=== PATIENT | female | born 1950 | race Caucasian/White ===

== ENCOUNTER 2016-06-16 11:24 | Day surgery (SDC) | payer MEDICARE ==
[~2016-06-16] VITALS: Ht 170.2 cm; Wt 86.0 kg
[~2016-06-16 11:24] MED LIST: BUPR300T52 PO; DICY20TA33 PO; IBUP200C PO; LORA1TAB PO; OMEP20CA11 PO; SERT100T9 PO; [UNRECOGNIZED DRUG - OTHER] PO
[2016-06-16] MEDS ORDERED: fentaNYL-PF 50 mCg/mL 2 mL Inj ONE (11:25)
[2016-06-16] MEDS ORDERED: Propofol 10 mg/mL 20 mL Inj ONE (11:25)
[2016-06-16 12:01] VITALS: BP 112/70; PULSE 86; RESP 18; O2SAT 99
[2016-06-16] MEDS: Lactated Ringer's 1,000 ML IV ONE ×3 (12:23→12:49)
--- NOTE | 2016-06-16 12:31 | PCM.HPANE ---
Patient Data Surgeon Admitting Provider: Attending Provider:Joshua Hong MD Primary Care Physician:Shaun Garner MD Other Provider:[facility] Reason for Visit Diarrhea Ht/WT & BMI Body Mass Index Allergies Coded Allergies: citalopram (Verified Adverse Reaction, Severe, very forgetful, confusion, 05/15/16) clonazepam (Verified Adverse Reaction, Severe, significant memory loss, ) duloxetine (Verified Adverse Reaction, Severe, "head zaps", 05/15/16) Past Anesthesia History Anesthesia History: Denies:: Anesthesia Reactions, Malignant Hyperthermia Diabetes History Hx Diabetes?: No MRSA MRSA: No Medications Reported Medications Omeprazole 20 Mg Capsule.dr20 Mg PO DAILY Ref 0 05/11/16 Ibuprofen 200 Mg [id number] Mg PO QID PRN For Pain Ref 0 05/11/16 [A Thru Z Adv Formula] No Conflict Check1 Tab PO DAILY 05/11/16 Sertraline HCl (Sertraline)100 Mg Igldyf454 Mg PO DAILY 30 Days Ref 0 12/04/14 Lorazepam 1 Mg Tablet0.5-1 Mg PO BID PRN For Anxiety Ref 0 12/04/14 Bupropion ER 300 Mg Tab.er.06z904 Mg PO DAILY #30 TABLET Ref 0 12/04/14 Discontinued Reported Medications Dicyclomine (Bentyl)20 Mg Gutukq54 Mg PO QID PRN PRN 05/11/16 History History of ENT Problems?: Yes HEENT History: Positive for:: Cataracts Hx of Heart Problems?: Yes Cardiovascular History: Denies:: Congestive Heart Failure Heart Murmur Hypertension Hx of Respiratory Problem?: Yes Respiratory History: Denies:: Tuberculosis Use of C-PAP Machine Hx Neurologic Problems?: No Hx of GI Problems?: Yes Gastrointestinal History: Positive for:: Gastroesphageal Reflux (very rare) Hx of Problems?: No Female Hx: Denies:: Currently Endometriosis Pelvic Inflammatory Problems with Breasts? Skin History: Denies:: History Skin Disorders? Pressure Ulcers Hx Musculoskeletal Problems?: Yes Musculoskeletal History: Positive for:: Musculoskeletal Trauma (S/P ORIF RT PATELLA RT KNEE PAINFUL HDWRE (AFTER FALL)=CURRENT PROBLEM) Hx of Psycho/Social Problems?: Yes Psycho Social History: Positive for:: Anxiety Hx Depression Denies:: Suicide Attempt Hx Surgeries?: Yes (vein surgery 1984,ORIF RT PATELLA) Hx Any Other Health Problems?: Yes Other History: Positive for:: Hospitalization (blood transfusion for vein surgery) Denies:: Cancer Thyroid Disease History Blood Transfusions: Positive for:: Blood Transfusions Denies:: Blood Transfuse Reaction Hx Diabetes: No Hx Alcohol Use: NoHx Substance Use: Yes (marijuana daily) Smoking Status: Never Smoker Have You Smoked inLast 12 mo: No Stop/Bang Risk Assessment Category Category 1A: Patient has history of documented sleep apnea, and HAS NOT received any narcotic, sedative or anesthesia administration during this stay. Category 1B: Patient has history of documented sleep apnea, and HAS received any narcotic , sedative or anesthesia administration during this stay Category 2: Patient has SUSPECTED Obstructive Sleep Apnea, and HAS received any narcotic , sedative or anesthesia administration during this stay. Category 3: Patient has SUSPECTED Obstructive Sleep Apnea and HAS NOT received narcotic, sedative or anesthesia administration during this stay. Category 4: Outpatient in Procedural Areas with known sleep apnea or who screen positive for High Risk via the STOP/BANG questionnaire. Exam Exam General Appearance: Alert, Oriented X3, Cooperative, No Acute Distress HEENT/AIRWAY: MP 2 Lungs: Clear to Auscultation Heart: Exam Unremarkable Plan Impression Patient chart reviewed, patient interviewed and anesthestic plan with risks, benefits, and alternatives discussed, and informed consent obtained. NPO Status: 9PM 05/14 ASA Physical Status: ASA2 Mod Systemic Disease Anesthetic Plan: MAC Bene/Risks/Altern/Consents: Yes HP Complete Prior to Induction: Yes Hua Dorsey MD Jun 16, 2016 07:34
[2016-06-16 12:51] VITALS: BP 99/63; PULSE 63; RESP 14; O2SAT 99
[2016-06-16 12:55] VITALS: BP 109/59; PULSE 87; RESP 16; O2SAT 96
--- NOTE | 2016-06-16 12:55 | PCM.ANEP2 ---
Post Anesthesia Evaluation ASA/CMS Post Anesthesia VS in Patient's Normal Range?: Yes Resp Stable; Airway Patent?: Yes CV Function & Hydration Stable: Yes Mental Status Recovered?: Yes Pain control Satisfactory?: Yes N/V Control Satisfactory?: Yes Hua Dorsey MD Jun 16, 2016 12:55
[2016-06-16 13:11] VITALS: BP 118/65; PULSE 84; RESP 16; O2SAT 98
--- NOTE | 2016-06-16 13:54 | ENDO ---
[address] [address] ENDOSCOPY PROCEDURE PATIENT: RALPH NICHOLS : 1950 MR#: [id number] ADMIT: 06/16/2016 JOB ID: [id number] DATE: 06/16/2016 TYPE OF OPERATION: Colonoscopy with biopsy. PREOPERATIVE DIAGNOSIS(ES): Diarrhea. POSTOPERATIVE DIAGNOSIS(ES): Small internal hemorrhoids. ANESTHESIA: Monitored anesthesia care. COMPLICATION: None. BLOOD LOSS: Minimal. DESCRIPTION OF PROCEDURE: After risks and benefits were explained to the patient, informed consent was obtained. After anesthesia administered, colonoscope was then inserted per rectum to terminal ileum, mucosa carefully examined. The prep of the patient was excellent. After the procedure was done, the scope withdrawn and procedure terminated. FINDINGS: Upon inspection of the anus, no masses, hemorrhoids, ulcers, or fissures that were seen. Throughout the entire examination, there were no polyps, masses or lesions. Biopsies taken from terminal ileum and random colon to rule out microscopic colitis and inflammatory bowel disease. Retroflexion showed small internal hemorrhoids. IMPRESSION: Small internal hemorrhoids. RECOMMENDATIONS: 1. Await pathology results. 2. Followup in GI clinic as needed.
--- NOTE | 2016-06-19 12:22 | PATH ---
SURGICAL PATHOLOGY Attending Physician:Joshua Hong MD CASE STATUS: Signed Out PATIENT NAME: RALPH NICHOLS PID: [id number] : 1950 DATE COLLECTED:06/16/2016 20:00 SPECIMEN: 1: Ileum, Biopsy 2: Colon, Biopsy CLINICAL HISTORY: DIARRHEA 1). TERMINAL ILEUM BIOPSY 2). RANDOM COLON BIOPSY FINAL DIAGNOSIS: 1.TERMINAL ILEUM BIOPSY: FRAGMENTS OF NORMAL-APPEARING TERMINAL ILEUM MUCOSA. Negative for granulomas. Negative for significant inflammation, dysplasia and malignancy. 2.RANDOM COLON BIOPSIES: FRAGMENTS OF NORMAL-APPEARING COLON MUCOSA. Negative for significant architectural distortion. Negative for significant inflammation, dysplasia and malignancy. ICD10 code R19.7 GROSS DESCRIPTION: The specimen is received in two formalin filled containers labeled with the patient's name. 1). The specimen is sublabeled "terminal ileum" and consists of a 0.3 x 0.3 x 0.2 CM portion of tissue which is entirely submitted in cassette 1A. 2). The specimen is sublabeled "random colon" and consists of 5 portions of tissue which aggregate to 0.5 x 0.5 x 0.3 CM. The specimen is entirely submitted in cassette 2A. 06/16/2016 DAC MICRO DESCRIPTION: See diagnosis. ICD-9 CODES: CPT CODES: 1: 23841 2: 96630 Electronically Signed Out Jean Pierre Holder MD [facility] Pathology [facility] [address] [facility], [place] [address] Technical component performed at [facility], [facility] [address], [address]
== END 2016-06-16 23:59 | disposition home or self-care (01) ==
LOC: END 11:24
PROVIDERS: ATTEND Internal Medicine Gastroenterology
DX: R19.7 Diarrhea, unspecified (principal); K64.8 Other hemorrhoids; Z79.899 Other long term (current) drug therapy
CPT/HCPCS: 45380; J2250; J7120